=== PATIENT | female | born 1990 | race Caucasian/White ===

== ENCOUNTER 2016-05-19 08:37 | Observation (INO) | payer OTHER ==
[2016-05-19] VITALS (10 sets, daily range): BP systolic 14–135; BP diastolic 64–81; PULSE 72–102; RESP 16–22; O2SAT 96–100
[~2016-05-19] VITALS: Ht 167.6 cm; Wt 73.1 kg
[~2016-05-19 08:37] MED LIST: FES300 PO; Ibuprofen PO
[2016-05-19] MEDS ORDERED: birth control patch (09:01)
--- NOTE | 2016-05-19 09:06 | ED.REPORT ---
HPI-Abd Pain F Under 40 Date of Service May 19, 2016 ED Provider: Dr. Bowman This patient is an otherwise healthy 25 year old female presenting to the ED complaining of non-radiating 2/10 lower abd pain that has concentrated to the RLQ today. Moving exacerbates the pain. Patient has nausea but denies vomiting, diarrhea, fever, chills, dysuria, back pain, or flank pain. She states that she has not eaten today. She denies smoking or alcohol use. Pt denies known , she is using patch control. Nursing Notes Stated Complaint: WAIST PAIN Chief Complaint: Female Abdominal Pain Nursing Notes Reviewed: Yes Allergies: Coded Allergies: No Known Allergies (Verified Allergy, Unknown, 05/19/16) Scheduled Norelgestromin/Ethin.estradiol (Xulane Patch) 1 Each Patch.tdwk 1 PATCH TRANSDERM WEEKLY General Time Seen by MD: 09:06 Chief Complaint Abdominal pain RLQ pain Hx Obtained From: Patient Arrived By: Walk-in Sudden in Onset?: Yes Onset Occurred: Yesterday Symptom Duration: Since onset Location: : RLQ Quality: Painful Radiation: : Does not radiate Severity: Current: Pain level 2 out of 10 Associated with: Reports: Nausea, Denies: Dysuria, Fever, Vomiting Exacerbated by: Movement Recent Healthcare: No recent doctor visit, No recent hospitalization Similar Sx Previous: No Past Medical History Past Medical History None stated Past Surgical History None stated Smoking History Unknown if Ever Smoker Social History Alcohol Use: Denies alcohol use Other Social History: Good social support, Lives with children Ambulatory Status Independent Review of Systems Basic Review of Systems Eyes: Vision NL, No discharge ENT: Hearing NL, No pain, No nasal congestion, No pharyngeal pain Allergy / Immune: No allergy Neurologic: NL mental status, No weakness, No numbness Psychiatric: Normal thought content Constitutional: Denies: Chills, Fever Respiratory: Denies: Shortness of breath Cardiovascular: Denies: Chest pain GI: Reports: Abdominal pain, Nausea, Denies: Constipation, Diarrhea, Vomiting Female: Denies: Dysuria, Flank pain Musculoskeletal: Denies: Back pain, Extremity pain Complete sys rev & neg: except as marked. Physical Exam Initial Vital Signs Vital Signs (First) Date Time Temp Pulse Resp B/P Pulse Ox O2 Delivery O2 Flow Rate FiO2 05/19/16 08:42 36.2 102 16 120/79 100 Initial VS: Reviewed Head / Eyes: Atraumatic, Normocephalic, PERRL ENT: Mucous membranes moist, Conjunctiva normal, No scleral icterus Neck: Supple, Full range of motion Extremities: Vascular intact, Neuro intact Skin: Warm, Dry, No cyanosis Neurologic: Alert, Oriented, Nonfocal Psychiatric: Mood/affect normal, Behavior normal, Normal thought content General/Constitutional: Awake, Alert, Well developed Respiratory / Chest: Breath sounds NL, Breath sounds = bilat, No respiratory distress, No rales, No rhonchi, No wheezing Cardiovascular: Heart rate NL, Regular rhythm, Heart sounds NL, Peripheral circulation NL Tenderness/Guarding/Rebound: Positive: McBurney's point tender, Tender RLQ... ( and R mid quadrant) Positive psoas sign Positive guarding with deep palpitation Back: Inspection NL, Non-tender, No CVA tenderness Interpretation & Diagnostics Lab Results Interpretation Result Diagram: 05/19/16 0951 05/19/16 0951 Test 05/19/16 08:52 05/19/16 09:51 05/19/16 09:54 Hold Urine Received (Received) White Blood Count 18.7th/mm3 (3.8-10.1) Red Blood Count 4.66mil/mm3 (3.90-5.20) Hemoglobin 13.7g/dL (12.0-15.6) Hematocrit 40.7% (35.0-46.0) Mean Corpuscular Volume 87.3fL (81-100) Mean Corpuscular Hemoglobin 29.4pg (27.0-35.0) Mean Corpuscular Hemoglobin Concent 33.7% (32.0-37.0) Red Cell Distribution Width 12.8% (12.3-15.4) Platelet Count 252bil/L (150-400) Neutrophils (%) (Auto) 87.1% (40-74) Lymphocytes (%) (Auto) 7.4% (14-46) Monocytes (%) (Auto) 4.9% (4-12) Eosinophils (%) (Auto) 0.2% (0-5) Basophils (%) (Auto) 0.2% (0-3) Sodium Level 140mEq/L (134-144) Potassium Level 4.1mEq/L (3.5-5.2) Chloride Level 103mEq/L (97-108) Carbon Dioxide Level 23mmol/L (18-29) Blood Urea Nitrogen 9mg/dL (6-20) Creatinine 0.64mg/dL (0.57-1.00) Estimat Glomerular Filtration Rate 163mL/min (>59) Glucose Level 113mg/dL (60-99) Calcium Level 9.6mg/dL (8.5-10.1) Magnesium Level 1.7mg/dL (1.6-2.6) Total Bilirubin 0.2mg/dL (0.0-1.2) Aspartate Amino Transf (AST/SGOT) 31U/L (0-50) Alanine Aminotransferase (ALT/SGPT) 14U/L (0-32) Alkaline Phosphatase 83U/L (25-150) Total Protein 8.1g/dL (6.4-8.4) Albumin 4.0g/dL (3.4-5.0) Lipase 21U/L (13-60) Hold Rowan Top Tube Received (Received) Urine Color Yellow (YELLOW) Urine Appearance Clear (CLEAR,HAZY) Urine pH 6.0 (5.0-8.0) Urine Specific [place] 1.025 (1.003-1.035) Urine Protein Negativemg/dL (NEG,TRACE) Urine Glucose (UA) Negativemg/dL (NEGATIVE) Urine Ketones Negativemg/dL (NEGATIVE) Urine Occult Blood Trace (NEGATIVE) Urine Nitrite Negative (NEGATIVE) Urine Bilirubin Negative (NEGATIVE) Urine Urobilinogen Normalmg/dL (NORMAL) Urine Leukocyte Esterase Negative (NEGATIVE) Urine RBC 3-10/hpf (0-2) Urine WBC 0-5/hpf (0-5) Urine Epithelial Cells Occasional/hpf (NONE-MOD) Urine Crystals None seen (NONE SEEN) Urine Bacteria Few/hpf (NONE-FEW) Urine Hyaline Casts None/lpf (NONE) Urine Granular Casts None seen (NONE SEEN) Urine Waxy Casts None seen (NONE SEEN) Urine Red Blood Cell Casts None seen (NONE SEEN) Urine White Blood Cell Casts None seen (NONE SEEN) Urine Mucus Present (None Seen) Urine Trichomonas None seen (NONE SEEN) Urine Yeast None (NONE SEEN) Urinalysis Comment None Urine Culture Reflexed Not indicated CT Abd / Pelvis Interpretation IMPRESSION: There is an acute appendicitis is considered currently without evidence for free air or fluid. Dictated by: Scott Montilla M.D. on 05/19/2016 at 11:21 Dr. Bowman is aware of these findings Approved by: Scott Montilla M.D. on 05/19/2016 at 11:21 Study type: Abdominal CT IV contrast Interpretation / Wet Read by: Interpret - Radiologist Re-Eval/Medical Decision Med Decision/Clinical Course Patient has right lower quadrant tenderness and was found to have acute appendicitis. Other differential diagnoses considered were pyelonephritis, gastroenteritis, and colitis. Source of Hx: Old records Re-Evaluation/Progress : Time of Eval: 11:25 Re-Evaluation/Progress Note: Discussed findings with patient. Ready for admit for surgery. Pt. states she last ate at 1999 last night. She agrees with plan and all questions have been addressed Consultation : Referral / Consult Name: Nito Nguyễn MD Consulted With: Surgeon Call Returned at: 11:27 Vocational Technical Education Teacher: Will see patient, Agrees with eval, Agrees with plan, Requested OR, Accepts admit Counseled Regarding: Diagnosis, Lab results, Need for admission Discharge & Departure Primary Impression: Appendicitis Appendicitis type: acute appendicitis Acute appendicitis type: unspecified acute appendicitis type Qualified Code: K35.80 - Unspecified acute appendicitis Disposition: ADMITTED TO HOSPITAL Discharge Condition All VS Reviewed: Yes Condition: Stable Scribe Attestation Portions of this note were transcribed by Bella Hyde. I, Dr. Bowman personally performed the history, physical exam and medical decision- making; I reviewed and confirmed the accuracy of the information in the transcribed note. Signed by: Ji Vee, 05/19/2016 and Hiram4. Monik Bowman MD May 19, 2016 09:06 Justina Hyde [Felicity] May 19, 2016 09:36 Bella Shaffer May 19, 2016 12:14
[2016-05-19] MEDS ORDERED: 0.9% Sodium Chloride 1,000 ML IV ONE (09:15)
[2016-05-19 09:54] LABS: BASOPHILS % (AUTO) 0.2 % (0-3); EOSINOPHILS % (AUTO) 0.2 % (0-5); MONOCYTES % (AUTO) 4.9 % (4-12); Mean Corpuscular Hemoglobin 29.4 pg (27.0-35.0); Mean Corpuscular Volume 87.3 fL (81-100); NEUTROPHILS % (AUTO) 87.1 % (40-74); Platelet Count 252 bil/L (150-400)
[2016-05-19 10:10] LABS: APPEARANCE,URINE CLEAR (CLEAR,HAZY); COLOR,URINE YELLOW (YELLOW); OCCULT BLOOD,URINE TRACE (NEGATIVE); UROBILINOGEN,URINE NORMAL (NORMAL)
[2016-05-19 10:20] LABS: Magnesium 1.7 mg/dL (1.6-2.6)
--- NOTE | 2016-05-19 11:23 | DRSVH ---
PROCEDURE: CT ABDOMEN AND PELVIS WITH CONTRAST ([id number]) INDICATIONS: RLQ pain TECHNIQUE: After the administration of intravenous contrast, 5 mm thick sections acquired from the diaphragm to the symphysis. 5 mm coronal and sagittal reformats were acquired. For radiation dose reduction, the following was used: automated exposure control, adjustment of mA and/or kV according to patient siz e. COMPARISON: None. FINDINGS: Image quality: Excellent. ABDOMEN: Lung bases: Lung bases are clear. Heart size is normal. Solid organs: Liver and spleen are normal in size and enhancement. There is a small 15 mm splenule adjacent to the superior medial aspect of the spleen. Gallbladder is within normal limits. Biliary s ystem is non dilated. Pancreas enhances normally. No adrenal nodules. Kidneys demonstrate normal s ize and enhancement, without hydronephrosis. Peritoneum and bowel: Bowel loops demonstrate normal wall thickness and caliber. No free fluid or a ir. The appendix is mildly enlarged at 1 cm. It enhances and there is a minimal amount of stranding a round it consistent with an early acute appendicitis. Nodes and vessels: No retroperitoneal or mesenteric adenopathy by size criteria. Aorta and inferior vena cava are normal in size. Miscellaneous: No ventral hernias. PELVIS: Genitourinary: Bladder wall thickness is normal. Miscellaneous: No inguinal hernias or adenopathy. Bones: No suspicious bony lesions. No vertebral body compression fractures. IMPRESSION: There is an acute appendicitis is considered currently without evidence for free air or f luid. Dictated by: Scott Montilla M.D. on 05/19/2016 at 11:21 Dr. Bowman is aware of these findings Approved by: Scott Montilla M.D. on 05/19/2016 at 11:21
[2016-05-19] MEDS ORDERED: Ampicillin-Sulbactam Inj 3,000 MG in 0.9% Sodium Chloride 100 ML IV ONE (11:45)
[2016-05-19] MEDS ORDERED: HYDROmorphone 0.5 mg/0.5 mL iSecure Syringe IVPUSH PRN (11:50)
[2016-05-19] MEDS ORDERED: MetoCLOpramide 5 mg/mL 2 mL Inj ONE (12:36)
[2016-05-19] MEDS ORDERED: Dexamethasone 4 mg/mL Inj ONE (12:36)
[2016-05-19] MEDS ORDERED: Succinylcholine Chloride 20 mg/mL 5 mL Inj ONE (12:36)
[2016-05-19] MEDS ORDERED: Ondansetron 2 mg/mL 2 mL Inj ONE (12:36)
[2016-05-19] MEDS ORDERED: Propofol 10,000 mCg/mL 20 mL Inj ONE (12:36)
[2016-05-19] MEDS ORDERED: Glycopyrrolate 0.2 mg/mL 5 mL Inj ONE (12:36)
[2016-05-19] MEDS ORDERED: Neostigmine 1 mg/mL 5 mL Inj ONE (12:36)
[2016-05-19] MEDS ORDERED: fentaNYL-PF 50 mCg/mL 2 mL Inj ONE (12:36)
[2016-05-19] MEDS ORDERED: Rocuronium 10 mg/mL 5 mL Inj ONE (12:36)
[2016-05-19] MEDS ORDERED: Lactated Ringer's 1,000 ML IV ONE (12:57)
[2016-05-19] MEDS ORDERED: Bupivacaine-MPF 0.5% W/EPI 30 mL Inj INJ ONE (13:18)
[2016-05-19] MEDS ORDERED: Lactated Ringer's 1,000 ML IV SCH (13:22)
[2016-05-19] MEDS ORDERED: Lactated Ringer's 500 ML IV PRN (13:22)
[2016-05-19] MEDS ORDERED: HYDROmorphone 1 mg/mL Inj IVPUSH PRN (13:25)
[2016-05-19] MEDS ORDERED: fentaNYL-PF 50 mCg/mL 2 mL Inj IVPUSH PRN (13:25)
[2016-05-19] MEDS ORDERED: MetoCLOpramide 5 mg/mL 2 mL Inj IVPUSH PRN (13:25)
[2016-05-19] MEDS ORDERED: Dexamethasone 4 mg/mL Inj IVPUSH PRN (13:25)
[2016-05-19] MEDS ORDERED: Ondansetron 2 mg/mL 2 mL Inj IVPUSH PRN ×2 (13:25→13:45)
[2016-05-19] MEDS ORDERED: Phenylephrine 10,000 mCg/mL Inj IVPUSH PRN (13:25)
[2016-05-19] MEDS ORDERED: EPHEDrine Sulfate 50 mg/mL Inj IVPUSH PRN (13:25)
--- NOTE | 2016-05-19 13:25 | PCM.HPANE ---
Patient Data Date of Service: May 19, 2016 ([id number]) Surgeon Admitting Provider:Nito Nguyễn MD Attending Provider:Nito Nguyễn MD Primary Care Physician:Nopcp Other Provider: Reason for Visit Acute Appendicitis Ht/WT & BMI Height (Feet): 5 Height (Inches): 6 Weight (Kilograms): 72.73 Body Mass Index Allergies Coded Allergies: No Known Allergies (Unverified Allergy, Unknown, 06/26/14) Diabetes History Hx Diabetes?: No Medications Reported Medications [ control patch] No Conflict Check Weekly 05/19/16 Discontinued Reported Medications Ferrous Sulfate-Expunged Drug, Do Not Renew! (Feosol-Expunged Drug, Do Not Renew !)325 Mg [id number] Mg PO DAILY 09/06/12 Discontinued Scripts [Ibuprofen] (Motrin)600 MG TABLET No Conflict [id number] Mg PO Q6H PRN For Mild Pain #40 TABLET Prov:Jorge Luis Hernández MD 06/27/14 History Cardiovascular History: Denies:: Congestive Heart Failure Hypertension Respiratory History: Denies:: Tuberculosis Hx Surgeries?: No Hx Diabetes: No Hx Alcohol Use: NoHx Substance Use: No Smoking Status: Unknown if Ever Smoker Stop/Bang Risk Assessment Category Category 1A: Patient has history of documented sleep apnea, and HAS NOT received any narcotic, sedative or anesthesia administration during this stay. Category 1B: Patient has history of documented sleep apnea, and HAS received any narcotic , sedative or anesthesia administration during this stay Category 2: Patient has SUSPECTED Obstructive Sleep Apnea, and HAS received any narcotic , sedative or anesthesia administration during this stay. Category 3: Patient has SUSPECTED Obstructive Sleep Apnea and HAS NOT received narcotic, sedative or anesthesia administration during this stay. Category 4: Outpatient in Procedural Areas with known sleep apnea or who screen positive for High Risk via the STOP/BANG questionnaire. Exam Exam Vital Signs Vital Signs Date Time Temp Pulse Resp B/P Pulse Ox O2 Delivery O2 Flow Rate FiO2 05/19/16 12:44 36.2 99 16 118/74 100 05/19/16 08:42 36.2 102 16 120/79 100 General Appearance: Alert, Oriented X3, Cooperative, No Acute Distress HEENT/AIRWAY: MP 2 Lungs: Clear to Auscultation Heart: Exam Unremarkable Meds/Labs/Diagnostics Admission Meds Current Medications Sodium Chloride (Normal Saline) 1,000 ml @ 0 mls/hr Q0M ONCE IV Last administered on 05/19/16t 09:48; Start 05/19/16 at 09:15; Stop 05/19/16 at 09:17; Status DC Labs Test 05/19/16 08:52 05/19/16 09:51 05/19/16 09:54 Hold Urine Received (Received) White Blood Count 18.7th/mm3 (3.8-10.1) Red Blood Count 4.66mil/mm3 (3.90-5.20) Hemoglobin 13.7g/dL (12.0-15.6) Hematocrit 40.7% (35.0-46.0) Mean Corpuscular Volume 87.3fL (81-100) Mean Corpuscular Hemoglobin 29.4pg (27.0-35.0) Mean Corpuscular Hemoglobin Concent 33.7% (32.0-37.0) Red Cell Distribution Width 12.8% (12.3-15.4) Platelet Count 252bil/L (150-400) Neutrophils (%) (Auto) 87.1% (40-74) Lymphocytes (%) (Auto) 7.4% (14-46) Monocytes (%) (Auto) 4.9% (4-12) Eosinophils (%) (Auto) 0.2% (0-5) Basophils (%) (Auto) 0.2% (0-3) Sodium Level 140mEq/L (134-144) Potassium Level 4.1mEq/L (3.5-5.2) Chloride Level 103mEq/L (97-108) Carbon Dioxide Level 23mmol/L (18-29) Blood Urea Nitrogen 9mg/dL (6-20) Creatinine 0.64mg/dL (0.57-1.00) Estimat Glomerular Filtration Rate 163mL/min (>59) Glucose Level 113mg/dL (60-99) Calcium Level 9.6mg/dL (8.5-10.1) Magnesium Level 1.7mg/dL (1.6-2.6) Total Bilirubin 0.2mg/dL (0.0-1.2) Aspartate Amino Transf (AST/SGOT) 31U/L (0-50) Alanine Aminotransferase (ALT/SGPT) 14U/L (0-32) Alkaline Phosphatase 83U/L (25-150) Total Protein 8.1g/dL (6.4-8.4) Albumin 4.0g/dL (3.4-5.0) Lipase 21U/L (13-60) Hold Rowan Top Tube Received (Received) Urine Color Yellow (YELLOW) Urine Appearance Clear (CLEAR,HAZY) Urine pH 6.0 (5.0-8.0) Urine Specific [place] 1.025 (1.003-1.035) Urine Protein Negativemg/dL (NEG,TRACE) Urine Glucose (UA) Negativemg/dL (NEGATIVE) Urine Ketones Negativemg/dL (NEGATIVE) Urine Occult Blood Trace (NEGATIVE) Urine Nitrite Negative (NEGATIVE) Urine Bilirubin Negative (NEGATIVE) Urine Urobilinogen Normalmg/dL (NORMAL) Urine Leukocyte Esterase Negative (NEGATIVE) Urine RBC 3-10/hpf (0-2) Urine WBC 0-5/hpf (0-5) Urine Epithelial Cells Occasional/hpf (NONE-MOD) Urine Crystals None seen (NONE SEEN) Urine Bacteria Few/hpf (NONE-FEW) Urine Hyaline Casts None/lpf (NONE) Urine Granular Casts None seen (NONE SEEN) Urine Waxy Casts None seen (NONE SEEN) Urine Red Blood Cell Casts None seen (NONE SEEN) Urine White Blood Cell Casts None seen (NONE SEEN) Urine Mucus Present (None Seen) Urine Trichomonas None seen (NONE SEEN) Urine Yeast None (NONE SEEN) Urinalysis Comment None Urine Culture Reflexed Not indicated Plan Impression Patient chart reviewed, patient interviewed and anesthestic plan with risks, benefits, and alternatives discussed, and informed consent obtained. ASA Physical Status: ASA2 Mod Systemic Disease Anesthetic Plan: GA Bene/Risks/Altern/Consents: Yes HP Complete Prior to Induction: Yes Don Mccord MD May 19, 2016 13:25
[2016-05-19] MEDS ORDERED: Polyethylene Glycol (PEG) 17 Gm Powder PO ONE (13:45)
[2016-05-19] MEDS ORDERED: HYDROmorphone 0.5 mg/0.5 mL iSecure Syringe IV PRN (13:45)
[2016-05-19] MEDS ORDERED: Acetaminophen IV 1,000 MG in IV Premix 1 EACH IV PRN (13:45)
[2016-05-19] MEDS ORDERED: diphenhydrAMINE 25 mg Capsule PO PRN (13:45)
--- NOTE | 2016-05-19 14:02 | PCM.ANEP2 ---
Post Anesthesia Evaluation ASA/CMS Post Anesthesia VS in Patient's Normal Range?: Yes Resp Stable; Airway Patent?: Yes CV Function & Hydration Stable: Yes Mental Status Recovered?: Yes Pain control Satisfactory?: Yes N/V Control Satisfactory?: Yes Don Mccord MD May 19, 2016 14:02
--- NOTE | 2016-05-19 14:02 | PCM.ANEP1 ---
Post Anesthesia Phase 1 PACU Phase 1 Assessment Date of Service: May 19, 2016 ([id number]) Vital Signs Vital Signs Date Time Temp Pulse Resp B/P Pulse Ox O2 Delivery O2 Flow Rate FiO2 05/19/16 14:00 73 21 14/64 99 Room Air 05/19/16 13:55 36.7 75 21 114/67 99 Room Air 05/19/16 13:50 74 17 119/75 99 Room Air 05/19/16 13:45 99 17 127/75 97 Room Air 05/19/16 13:41 37.3 99 17 135/81 97 Room Air 05/19/16 12:44 36.2 99 16 118/74 100 05/19/16 08:42 36.2 102 16 120/79 100 Anesthetic Administered: GA Level of Alertness: Sleepy, easy to arouse SCHMIDT's with Equal Strength: Yes Pain: No Pain Scale Score: 6 Nausea or Vomiting: No Oxygen Delivery: Room Air Lungs: Clear to Auscultation Dermatome Level: Full Sensation Don Mccord MD May 19, 2016 14:02
[2016-05-19] MEDS: D5 0.45% NaCl + KCl 20 mEq/L 1,000 ML IV SCH ×2 (14:38→23:42)
[2016-05-19] MEDS ORDERED: NORE1PAT7 TRANSDERM (14:43)
--- NOTE | 2016-05-19 15:34 | NUR ---
post-op/admit Received report from KAYAKING INSTRUCTOR at 1400 and pt arrived to [facility] room 1018 from PACU at 1410. Pt alert and oriented and awake talking upon arrival to unit. Denies any pain, nausea or SOB. Lap sites to abd x3 C/D/I, no drainage noted. Oriented to room and call light, updated pt on plan of care, encouraged pt to call for RN when she begins to experience any pain or nausea and educated pt to not wait until pain really high before letting RN know so that it can be managed better, pt verbalizes understanding. Pt sipping on clear liquids, given menu for dinner. Admission assessment completed. Family at bedside. IVF infusing per orders. Will continue to monitor, frequent rounding and call light in reach. Addendum: 05/19/16 at 1814 by WILLIAM MADRID RN Pt medicated x1 with 5mg oxycodone for c/o 2/10 abd pain which increases with activity (getting up to bathroom). Pt reports medication as well as splinting with rolled blanket is helping to keep pain at tolerable level with activity. Up to bathroom with SBA. General diet ordered for dinner. Will continue to monitor. Addendum: 05/19/16 at 1852 by WILLIAM MADRID RN Tolerated general diet dinner without difficulty. Care continues.
--- NOTE | 2016-05-19 18:58 | HP ---
[address] [address] HISTORY AND PHYSICAL PATIENT: IRENE PATEL : 1990 MR#: [id number] ADMIT: 05/19/2016 JOB ID: [id number] CHIEF COMPLAINT/INDICATION: A 25-year-old female with probable appendicitis. HISTORY OF PRESENT ILLNESS: The patient has had less than 24 hours abdominal pain, no previous episodes. No associated nausea, vomiting, or diarrhea. PAST MEDICAL HISTORY: Unremarkable. MEDICATIONS: -control patch. ALLERGIES: None. SOCIAL HISTORY: He is seen with her boyfriend, father lives in [place] and is coming over to see her. Negative tobacco. Negative daily alcohol. Works on-call as a para-educator. FAMILY HISTORY: Noncontributory. REVIEW OF SYSTEMS: Negative. PHYSICAL EXAMINATION: Vital signs recorded in the chart. Her sclerae are clear. Neck is supple. Lungs are clear. Heart sounds are regular. She has marked right lower quadrant tenderness to palpation. Pelvic is not performed. LABS: UA is dip negative for . White count is 18. Hematocrit is 40. Chemistries are normal. Lipase is 21. IMAGING: Abdominal CT scan has been reviewed as well as the report. This is consistent with appendicitis. No other significant findings. IMPRESSION AND PLAN: Probable appendicitis. I have recommended laparoscopic appendectomy. The patient tells me she is quite nervous about this sort of thing, and we have gone over possible complications. She agrees to proceed.
[2016-05-20 01:11] VITALS: BP 107/64; PULSE 62; RESP 18; O2SAT 98
--- NOTE | 2016-05-20 04:03 | NUR ---
Activity Pt ambulating in hallway with spouse, no pain or increase in pain. No N/V after dinner (steak and potatoes), good fluid intake, IVF completed and saline locked. Pt states flatulence but no BM. 3 Incision sites covered will small island tegaderms, show minimal drainage at each site. remains in room with PT. LS clear, no SOB, no chest pain. Will continue to monitor
[2016-05-20 06:25] VITALS: BP 110/68; PULSE 64; RESP 16; O2SAT 97
--- NOTE | 2016-05-20 09:02 | PCM.PNSURG ---
Subjective Date of Service: May 20, 2016 Date of Service: May 20, 2016 Visit Information: Reason for Visit Acute Appendicitis Surgery/Surgery Date LAP APPY 05/19/16 Post-Op Day # 1 Date of Admission: May 19, 2016 at 12:35 Hospital Day # Subjective: Patient seen awake in bed. She is doing well, using minimal oral pain medication. Her pain today is on the left side near the incisions and worse with movement. Right-sided pain has resolved. Denies nausea or vomiting. Tolerated a general diet last night. She is passing flatus but no bowel movement yet. Gastrointestinal: Good Appetite, Tolerating Oral Feedings, No N/V, Passing Flatus Pain Management: PO Postop Activity: Ambulating Independently Objective Vital Sign- Last 8 Hours Date Time Temp Pulse Resp B/P Pulse Ox O2 Delivery O2 Flow Rate FiO2 05/20/16 06:25 37.1 64 16 110/68 97 Room Air 05/20/16 01:11 36.3 62 18 107/64 98 Room Air Intake and Output- Last 8 Hour 05/20/16 Cumulative From/Thru 07:00 05/19/16 08:42 - 05/20/16 06:25 Intake Total 1720 ml 5671 ml Output Total 700 ml Balance 1720 ml 4971 ml Intake Oral 1126 ml 2886 ml IV Total 594 ml 2785 ml Output Urine Total 700 ml # Voids 4 4 # Bowel Movements 0 0 General: Alert, Oriented X3, Cooperative, No Acute Distress Lungs: Clear to Auscultation Heart: Regular Rate/Rhythm Abdomen: Soft, Appropriately tender, Non-distended Neuro: Normal Speech Catheters: None Result Diagram: 05/19/16 0951 05/19/16 0951 Lab & Micro Results: No labs today. Assessment & Plan Impression Postoperative day #1 laparoscopic appendectomy for non-perforated appendicitis. Problems: Plan Discharge home today on oral analgesics. Follow-up in the [facility] general surgery outpatient clinic in 2 weeks, sooner if necessary. Reviewed routine postoperative care instructions. Mohini Mcdaniel PA-C May 20, 2016 09:02
--- NOTE | 2016-05-20 09:07 | PCM.DISURG ---
Surgical Discharge Instruction Date of Service May 20, 2016 Dates of Hospitalization Date of Hospital Admission May 19, 2016 at 12:35 Providers Admitting Physician: Nito Nguyễn MD Primary Care Physician: Nopcp Attending Physician: Nito Nguyễn MD Discharge Diagnosis Discharge Diagnosis Acute appendicitis status post laparoscopic appendectomy. Post Operative diagnosis Acute appendicitis Diet Discharge Diet: No restrictions Activity Discharge Activity-General: Try not to overdue, Be up and about, Balance rest and activity, Activity as energy allows, No driving while taking narcotic Dressing and Incisional Care Dressing Care: Remove outer dressing after 24 hrs (then cover incisions with Band-Aids.) Hygiene: May shower Follow Up Plan Follow Up Plan Follow-up at the [facility] general surgery outpatient clinic in 2 weeks. Mid-level Provider (F9): Silvino Tafoya PA-C Follow-up appointment: Weeks (2) Call your provider for: Fever, Chills, Increasing abdominal pain, Nausea, Vomiting, Wound redness, Increasing wound pain, Warmth to touch, Discharge @ incision, pus discharge Mohini Mcdaniel PA-C May 20, 2016 09:07
[2016-05-20] MEDS ORDERED: ACET325C PO (09:11)
[2016-05-20] MEDS ORDERED: Ibuprofen PO (09:11)
[2016-05-20] MEDS ORDERED: OXYC5TAB72 PO (09:11)
--- NOTE | 2016-05-20 09:50 | PCM.DC.SUR ---
Discharge Summary Date of Service: May 20, 2016 Date of Hospital Admission: May 19, 2016 at 12:35 Date of Operation(s): 05/19/2016 Date of Discharge: 05/20/2016 Diagnosis at Time of Discharge Acute appendicitis status post laparoscopic appendectomy. Problems: Operation Laparoscopic appendectomy by Dr. Nito Nguyễn. Brief History and Physical: The patient had less than 24 hours abdominal pain, no previous episodes. No associated nausea, vomiting, or diarrhea. Consultants: None. Hospital Course: The patient presented to the emergency department on 05/19/2016 complaining of lower abdominal pain in the right lower quadrant. She had nausea but no vomiting, diarrhea, fever. Workup was consistent with findings of acute appendicitis. She was taken to the operating room by Dr. Nito Nguyễn and underwent laparoscopic appendectomy. She tolerated the procedure well. On her first postsurgical day pain was well-controlled with oral medications, she was tolerating a general diet and had no nausea or vomiting and was passing flatus. Pathology: Pending at time of discharge. Disposition: The patient was discharged home on oral pain medications, eating a general diet , and was given routine postoperative wound care instructions. Follow-up Plan: Follow-up in 2 weeks at the [facility] general surgery outpatient clinic. ([Ibuprofen]) 200 MG TABLET 400 MG PO QID PRN PRN For Pain Acetaminophen (Acetaminophen) 325 Mg Capsule 325 MG PO Q6H PRN PRN For Pain Norelgestromin/Ethin.estradiol (Xulane Patch) 1 Each Patch.tdwk 1 PATCH TRANSDERM WEEKLY (Reported) oxyCODONE (oxyCODONE) 5 Mg Tablet 5 MG PO Q4H PRN PRN For Moderate Pain Mohini Mcdaniel PA-C May 20, 2016 09:50
--- NOTE | 2016-05-20 14:50 | NUR ---
Discharge Pt discharged to home with . A&Ox3, SCHMIDT, IV dcd intact, Scripts provided with Ca[place] and dc paperwork completed by agapito polk RN, All personal belongings in hand, Pain tolerable - dressings intact. Walked off unit at ~1100
--- NOTE | 2016-05-21 11:51 | PATH ---
SURGICAL PATHOLOGY Attending Physician:Nito Nguyễn MD CASE STATUS: Signed Out PATIENT NAME: IRENE PATEL PID: [id number] : 1990 DATE COLLECTED:05/19/2016 00:00 SPECIMEN: Appendix CLINICAL HISTORY: A: APPENDIX FINAL DIAGNOSIS: 1.APPENDIX: ACUTE APPENDICITIS. NO EVIDENCE OF MALIGNANCY. ICD10 CODE K35.80 GROSS DESCRIPTION: The specimen is received in one formalin filled container labeled with the patient's name, sublabeled "appendix" and consists of one cylindrical tse appendix measuring 6.0 x 0.9 x 0.8 CM. The serosal surface is a light garcia-tse in color. There is attached fatty tissue. Sectioning reveals the wall to be 0.4 CM in thickness. The lumen contains a small amount of light garcia-tse runny to friable material. Teleprinter Installer sections are submitted in one cassette. 05/20/2016 DAC MICRO DESCRIPTION: See diagnosis. ICD-9 CODES: CPT CODES: 68980 Electronically Signed Out Arelis Chow MD [facility] [address], [place] [address] Technical component performed at [facility], [address] [place] [address] Ave[address], [place], [address]
--- NOTE | 2016-05-28 18:21 | OP ---
[address] [address] OPERATIVE REPORT PATIENT: IRENE PATEL : 1990 MR#: [id number] ADMIT: 05/19/2016 JOB ID: [id number] DATE OF SURGERY: 05/19/2016 SURGEON: Nito Nguyễn MD PREOPERATIVE DIAGNOSIS(ES): Acute appendicitis. POSTOPERATIVE DIAGNOSIS(ES): Acute appendicitis. PROCEDURE: Laparoscopic appendectomy. PRODUCT DEVELOPMENT: None. INDICATIONS: Please note this is a re-dictation of what I thought was a previously dictated operative note from the time of surgery, done from memory and the handwritten operative note. This is a 25-year-old female who came in with signs and symptoms consistent with acute nonperforated appendicitis. She was brought to the operating room after informed consent. FINDINGS: Acute nonperforated appendicitis. PROCEDURE IN DETAIL: The patient brought to the operating room. General anesthetic was administered. Surgical time-out was performed. SCOAP protocol was followed. She received perioperative antibiotics. The abdomen was prepped and draped in sterile fashion. We obtained access with a Veress needle followed by three trocars. The appendix was clearly inflamed, not perforated. We divided the appendix at its base along with the mesoappendix with a combination of staplers and cautery. The appendix was removed without wound contamination, either in a bag or in the larger trocar. We then performed appropriate irrigation, checked the staple line to make sure it was intact and there was no ongoing bleeding, suctioned out all of our irrigant and then let our CO2 out, followed by closure of the larger fascial defects with 0 Vicryl and subcuticular Monocryl. The patient tolerated the procedure well.
== END 2016-05-20 11:14 | disposition home or self-care (01) ==
LOC: SED 08:37 → OSC 12:35
PROVIDERS: ADMIT Surgery; ATTEND Surgery
DX: K35.80 Unspecified acute appendicitis (principal)
CPT/HCPCS: 44970; 74177; 80053; 81000; 81025; 83690; 83735; 85025; 94640; 96361; 96374; 99285; G0378; J0295; J0330; J1100; J1170; J2175; J2405; J2710; J2765; J7030; J7120; Q9967

== ENCOUNTER 2016-07-12 02:40 | Emergency (ER) | payer OTHER ==
[~2016-07-12] VITALS: Ht 165.1 cm; Wt 71.8 kg
[~2016-07-12 02:40] MED LIST changes: +ACET325C PO; -FES300 PO; +NORE1PAT7 TRANSDERM; +OXYC5TAB72 PO
[2016-07-12 02:50] VITALS: BP 142/90; PULSE 91; RESP 18; O2SAT 99
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
== END 2016-07-12 05:19 | disposition home or self-care (01) ==
LOC: SED 02:40
DX: S02.2XXA Fracture of nasal bones, initial encounter for closed fracture (principal); S01.81XA Laceration without foreign body of other part of head, initial encounter; T74.11XA Adult physical abuse, confirmed, initial encounter; Y04.8XXA Assault by other bodily force, initial encounter; Y07.03 Male partner, perpetrator of maltreatment and neglect; Y92.9 Unspecified place or not applicable; Y93.89 Activity, other specified; Y99.8 Other external cause status; M79.641 Pain in right hand